=== PATIENT | male | born 1980 | race American Indian/Alaskan Native ===

== ENCOUNTER 2018-12-21 20:09 | Emergency (ER) | payer BC ==
[~2018-12-21] VITALS: Ht 167.6 cm; Wt 97.7 kg
[2018-12-21 20:15] VITALS: Ht 167.6 cm; Wt 97.7 kg
[2018-12-21 21:00] LABS: BASOPHILS 0.2 % (0-2); EOSINOPHILS 2.6 % (0-7); HEMOGLOBIN 14.1 g/dL (13.5-17.5); IMMATURE GRANULOCYTES 0.1 % (0-5); MCH 28.7 pg (26.0-34.0); MCHC 32.8 g/dL (31.0-37.0); MCV 87.6 fL (80.0-100.0); MONOCYTES 7.7 % (2-11); NEUTROPHILS 67.4 % (40-80); PLATELET COUNT 283 10x3/uL (130-400); RBC 4.91 10x6/uL (4.20-6.10); RDW 14.5 % (11.5-14.5); WBC 8.2 10x3/uL (4.8-10.8)
[2018-12-21 21:25] LABS: ALBUMIN 3.8 g/dL (3.4-5.0); ALKALINE PHOSPHATASE 60 U/L (46-116); ALT (SGPT) 28 U/L (10-68); BILIRUBIN - TOTAL 0.73 mg/dL (0.2-1.3); CALC OSMOLALITY 280 mosm/kg (275-300); CALCIUM 8.7 mg/dL (8.5-10.1); CARBON DIOXIDE 27.7 mmol/L (21.0-32.0); CHLORIDE - SERUM 103 mmol/L (98-107); CREATININE - SERUM 1.1 mg/dL (0.6-1.3); GLUCOSE 108 mg/dL (74-106); PROTEIN - SERUM 7.8 g/dL (6.4-8.2); SODIUM 141 mmol/L (136-145); UREA NITROGEN 10 mg/dL (7-18); eGFR NON AFRICAN AMERICAN 79 mL/min (90-120)
[2018-12-21 21:29] LABS: APTT 30.7 SECONDS (22.8-39.4); INR 0.97 (0.85-1.17); PROTIME 12.4 SECONDS (11.6-15.0)
[2018-12-21 21:37] LABS: AMYLASE - SERUM 85 U/L (25-115); CKMB 1.4 U/L (0.0-3.6); CREATINE KINASE 178 UL (21-232); LIPASE 200 U/L (73-393); MAGNESIUM - SERUM 2.1 mg/dL (1.8-2.4)
[2018-12-21 21:40] LABS: TROPONIN-I < 0.017 ng/mL (0.000-0.060)
[2018-12-21 23:59] LABS: CKMB 1.2 U/L (0.0-3.6); CREATINE KINASE 163 UL (21-232)
[2018-12-22 00:01] LABS: TROPONIN-I < 0.017 ng/mL (0.000-0.060)
[2018-12-22] MEDS ORDERED: OMEPRAZOLE40 MG PO (00:11)
[2018-12-22 00:12] VITALS: BP 155/86
== END 2018-12-22 00:18 | disposition home or self-care (01) ==
LOC: D.ER 20:09
PROVIDERS: Family Medicine
DX: K21.9 Gastro-esophageal reflux disease without esophagitis (principal)